=== PATIENT | female | born 1970 | race Caucasian/White ===

== ENCOUNTER 2017-05-06 16:11 | Emergency (ER) | payer MEDICAID ==
[~2017-05-06] VITALS: Ht 162.6 cm; Wt 79.0 kg
[~2017-05-06 16:11] MED LIST: POTA-243 PO; ZOFR4TAB3 PO
[2017-05-06 16:23] VITALS: BP 137/87; PULSE 101; RESP 16; TEMP 98.6; O2SAT 96
--- NOTE | 2017-05-06 16:43 | PD ---
HPI Chief Complaint: Injury Time Seen by Provider: 16:27 Travel History International Travel<30 days: No Contact w/Intl Traveler<30days: No Traveled to known affect area: No History of Present Illness HPI 47-year-old female to the emergency room for evaluation of right elbow pain and swelling after injuring it just prior to arrival. Patient slipped on clothing on her floor and fell forward striking her elbow against the wall before falling to the ground and landing on her elbow. Denies any other injuries. Had mild pain but states every time she uses her hand the pain worsens. Denies paresthesias. She has not taken anything for pain. Denies any daily medications. PFSH Past Medical History Hx Anticoagulant Therapy: No Arthritis: No Blood Disorders: No Anxiety: Yes Depression: Yes Heart Rhythm Problems: Yes (PALPITATIONS) Cancer: No Cardiovascular Problems: Yes (intermittent sudden cold/pallor/pain to legs) High Cholesterol: Yes Chest Pain: Yes Congestive Heart Failure: No Cerebrovascular Accident: Yes Diminished Hearing: No Endocrine: No Genitourinary: Yes Headaches: Yes Hiatal Hernia: Yes Immune Disorder: No Kidney Stones: Yes (STENTS PLACED MULTIPLE TIMES, LITHOTRIPSY) Musculoskeletal: Yes (legs get weak and give out; mobility impaired by) Neurologic: Yes Psychiatric: No Reproductive: Yes Respiratory: No Migraines: Yes Pneumonia: Yes Seizures: Yes Ulcer: Yes ?: Not : 3 Para: 3 : 0 Tubal Ligation: Yes (1996) Past Surgical History Abdominal Surgery: Yes (2 HERNIA REPAIRS) Arteriovenous Shunt: No Gynecologic Surgery: Yes (TUBAL 1996, HYSTERECTOMY) Hysterectomy: Yes Other Surgery: Yes (LITHOTRIPSY, LEFT KIDNEY) Social History Alcohol Use: No Tobacco Use: Yes (1 PPD) Substance Use: No Allergies-Medications (Allergen,Severity, Reaction): Coded Allergies: Sulfa (Sulfonamide Antibiotics) (Unverified Allergy, Severe, Hives, ) diazepam (Unverified Allergy, Severe, Irritability/Anxiety, 05/06/17) Reported Meds & Prescriptions Reported Meds & Active Scripts Active Review of Systems Except as stated in HPI: all other systems reviewed are Neg Physical Exam Narrative GENERAL: Well-nourished, well-developed female in no acute distress. Afebrile. Ambulatory. SKIN: Focused skin assessment warm/dry. No erythema or ecchymosis noted. HEAD: Normocephalic. EYES: No scleral icterus. No injection or drainage. NECK: Supple, trachea midline. No JVD or lymphadenopathy. CARDIOVASCULAR: Regular rate and rhythm without murmurs, gallops, or rubs. RESPIRATORY: Breath sounds equal bilaterally. No accessory muscle use. MUSCULOSKELETAL: No cyanosis. Very mild edema over the lateral epicondyle. Tenderness to palpation of the lateral epicondyle. 2+ radial pulse. Radial, ulnar, and median nerves intact. Strength 5/5 and equal in bilateral upper extremities. Data Data Last Documented VS Vital Signs Date Time Temp Pulse Resp B/P (MAP) Pulse Ox O2 Delivery O2 Flow Rate FiO2 05/06/17 16:23 98.6 101 16 137/87 (104) 96 Orders Orders Elbow, Complete (4 Vws) (05/06/17 ) [facility] Medical Decision Making Medical Screen Exam Complete: Yes Emergency Medical Condition: Yes Medical Record Reviewed: Yes Differential Diagnosis Contusion, abrasion, fracture, strain, sprain Narrative Course 47-year-old female presents to the emergency room for evaluation of right elbow pain and swelling after injuring it earlier today. Patient slipped on her wood floor striking her elbow on her wall before landing on her elbow. She reports [id number] pain worse with range of motion of the hand. She denies paresthesias. Physical exam reveals mild edema over the lateral epicondyle. There is tenderness to palpation. Radial, ulnar, and median nerves intact. 2+ radial pulse. Full range motion the elbow. X-ray is negative. This is contusion. Patient discharged with Garry wrap and told to follow up with a primary care physician if symptoms persist or return for worsening symptoms. She understands and agrees to plan. Diagnosis Primary Impression: Contusion of right elbow Qualified Codes: S50.01XA - Contusion of right elbow, initial encounter Referrals: Primary Care Physician Additional Instructions: Rest and drink plenty of fluids. Garry wrap as needed for pain. Take ibuprofen with food as directed, as needed for pain. Apply ice to the affected area for 20 minutes at a time, as needed for pain and swelling. Follow-up with a primary care physician. Return to the emergency room for worsening symptoms. Disposition: 01 DISCHARGE HOME Condition: Stable Haily Terrazas May 06, 2017 16:43
--- NOTE | 2017-05-06 16:53 | RADRPT ---
EXAM DATE/TIME: 05/06/2017 16:45 [facility] COMPARISON: CHEST SINGLE AP, May 05, 2015, 13:57. INDICATIONS : Fall this morning and landed on elbow. MEDICAL HISTORY : None. SURGICAL HISTORY : None. ENCOUNTER: Initial ACUITY: 1 day PAIN SCORE: 8/10 LOCATION: Right Elbow FINDINGS: Multiple view examination of the right elbow demonstrates no soft tissue swelling, joint effusion, or fracture. The osseous structures are in normal alignment. Bony mineralization is normal. CONCLUSION: 1. Negative examination. Naveed Gerber MD on May 06, 2017 at 16:51 Board Certified Radiologist. This report was verified electronically.
== END 2017-05-06 17:13 | disposition home or self-care (01) ==
LOC: PHEFT 16:11
DX: S50.01XA Contusion of right elbow, initial encounter (principal); W01.198A Fall on same level from slipping, tripping and stumbling with subsequent striking against other object, initial encounter
CPT/HCPCS: 73080; 99283

== ENCOUNTER 2017-06-17 09:19 | Emergency (ER) | payer MEDICAID ==
[~2017-06-17] VITALS: Ht 162.6 cm; Wt 80.6 kg
[2017-06-17 09:44] VITALS: BP 137/83; PULSE 96; RESP 16; TEMP 98.2; O2SAT 98
[2017-06-17] MEDS ORDERED: SODIUM CHLOR 0.9% 1000 ML INJ 1,000 ML IV SCH (10:11)
[2017-06-17] MEDS ORDERED: LIDOCAINE VISCOUS 2% SOLN 15 ML UDC PO ONE (10:15)
[2017-06-17] MEDS ORDERED: SODIUM CHLORIDE 0.9% FLUSH 10 ML FLUSH IV FLUSH PRN (10:15)
[2017-06-17] MEDS ORDERED: ALUMINUM/MAGNESIUM/SIMETH 30 ML CUP PO ONE (10:15)
[2017-06-17] MEDS ORDERED: KETOROLAC TROMETHAMINE 30 MG/ML (IVP) VIAL IVP ONE (10:15)
[2017-06-17 10:24] VITALS: O2SAT 98
[2017-06-17 10:30] LABS: AUTOMATED NEUTROPHIL # 5.6 TH/MM3 (1.8-7.7); BASOPHIL # 0.1 TH/MM3 (0-0.2); BASOPHIL % 0.9 % (0.0-2.0); EOSINOPHIL # 0.1 TH/MM3 (0-0.4); EOSINOPHIL % 1.3 % (0.0-4.0); HEMATOCRIT 41.1 % (35.0-46.0); HEMO FLAGS DIFF FINAL; LYMPH % 25.7 % (9.0-44.0); LYMPHOCYTE # 2.2 TH/MM3 (1.0-4.8); MEAN CELL VOLUME 87.9 FL (80.0-100.0); MEAN CORPUSCULAR HEMOGLOBIN 29.8 PG (27.0-34.0); MEAN CORPUSCULAR HGB CONC 33.9 % (32.0-36.0); MONO % 7.3 % (0.0-8.0); NEUT % 64.8 % (16.0-70.0); PLATELET COUNT 288 TH/MM3 (150-450); RED BLOOD COUNT 4.67 MIL/MM3 (4.00-5.30); WHITE BLOOD COUNT 8.6 TH/MM3 (4.0-11.0)
[2017-06-17 10:31] LABS: BLOOD, URINE SMALL (NEG); GLUCOSE,URINE NEG (NEG); KETONE, URINE NEG (NEG); NITRITE,URINE NEG (NEG); PH, URINE 7.5 (5.0-8.5); URINE COLOR YELLOW (YELLW/STRAW)
[2017-06-17 10:36] LABS: BACTERIA, URINE RARE /hpf; COMMENT (UR) CULT NOT INDICATED; CULTURE IF INDICATED CULT NOT INDICATED; RBC, URINE 0-3 /hpf (0-3); SQUAMOUS EPITHELIAL CELL URINE 0-5 /hpf (0-5)
[2017-06-17 10:44] LABS: CHLORIDE 105 MEQ/L (98-107); POTASSIUM 3.6 MEQ/L (3.5-5.1); SODIUM (NA) 140 MEQ/L (136-145)
--- NOTE | 2017-06-17 10:46 | PD ---
HPI Chief Complaint: Flank/Kidney Pain Time Seen by Provider: 10:08 Travel History International Travel<30 days: No Contact w/Intl Traveler<30days: No Traveled to known affect area: No History of Present Illness HPI 47 yo F c/o R abdomen pain with radiation to the right flank starting over the past few days and worsening significantly overnight. + Nausea without vomiting. No diarrhea. Oral intake tends to provoke or worsen pain. no fever. no urinary symptoms, vb/vd. no hx gallbladder disease. pain can be moderate to severe. pt denies alcohol. PFSH Past Medical History Hx Anticoagulant Therapy: No Arthritis: No Blood Disorders: No Anxiety: Yes Depression: Yes Heart Rhythm Problems: Yes (PALPITATIONS) Cancer: No Cardiovascular Problems: Yes (intermittent sudden cold/pallor/pain to legs) High Cholesterol: Yes Chest Pain: Yes Congestive Heart Failure: No Cerebrovascular Accident: Yes Diminished Hearing: No Endocrine: No Genitourinary: Yes Headaches: Yes Hiatal Hernia: Yes Immune Disorder: No Kidney Stones: Yes (STENTS PLACED MULTIPLE TIMES, LITHOTRIPSY) Musculoskeletal: Yes (legs get weak and give out; mobility impaired by) Neurologic: Yes Psychiatric: No Reproductive: Yes Respiratory: No Migraines: Yes Pneumonia: Yes Seizures: Yes Ulcer: Yes Influenza Vaccination: No ?: Not : 3 Para: 3 Miscarriage: 0 : 0 Tubal Ligation: Yes (1996) Past Surgical History Abdominal Surgery: Yes (2 HERNIA REPAIRS) Arteriovenous Shunt: No Gynecologic Surgery: Yes (TUBAL 1996, HYSTERECTOMY) Hysterectomy: Yes Other Surgery: Yes (LITHOTRIPSY, LEFT KIDNEY) Social History Alcohol Use: No Tobacco Use: Yes (1 PPD) Substance Use: No Allergies-Medications (Allergen,Severity, Reaction): Coded Allergies: Sulfa (Sulfonamide Antibiotics) (Unverified Allergy, Severe, Hives, ) diazepam (Unverified Allergy, Severe, Irritability/Anxiety, 06/17/17) Reported Meds & Prescriptions Reported Meds & Active Scripts Active No Active Prescriptions or Reported Medications Review of Systems Except as stated in HPI: all other systems reviewed are Neg General / Constitutional: No: Fever Gastrointestinal: Positive: Abdominal Pain Physical Exam Narrative GENERAL: 47 yo F, WNWD, mild distress 2/2 pain SKIN: Warm and dry. HEAD: Atraumatic. Normocephalic. EYES: Pupils equal and round. No scleral icterus. No injection or drainage. ENT: No nasal bleeding or discharge. Mucous membranes pink and moist. NECK: Trachea midline. No JVD. CARDIOVASCULAR: Regular rate and rhythm. RESPIRATORY: No accessory muscle use. Clear to auscultation. Breath sounds equal bilaterally. GASTROINTESTINAL: Soft. TTP RUQ. No flank TTP. MUSCULOSKELETAL: Extremities without clubbing, cyanosis, or edema. No obvious deformities. NEUROLOGICAL: Awake and alert. No obvious cranial nerve deficits. Motor grossly within normal limits. Five out of 5 muscle strength in the arms and legs. Normal speech. PSYCHIATRIC: Appropriate mood and affect; insight and judgment normal. Data Data Last Documented VS Vital Signs Date Time Temp Pulse Resp B/P (MAP) Pulse Ox O2 Delivery O2 Flow Rate FiO2 06/17/17 10:24 98 Room Air 06/17/17 09:44 98.2 96 16 137/83 (101) VS reviewed Orders Orders Complete Blood Count With Diff (06/17/17 10:11) Comprehensive Metabolic Panel (06/17/17 10:11) Lipase (06/17/17 10:11) Urinalysis - C+S If Indicated (06/17/17 10:11) Ct Abd/Pel W Iv Contrast(Rout) (06/17/17 10:11) Iv Access Insert/Monitor (06/17/17 10:11) Ecg Monitoring (06/17/17 10:11) Oximetry (06/17/17 10:11) Sodium Chlor 0.9% 1000 Ml Inj (Ns 1000 M (06/17/17 10:11) Sodium Chloride 0.9% Flush (Ns Flush) (06/17/17 10:15) Ketorolac Inj (Toradol Inj) (06/17/17 10:15) Al-Mag Hy-Si 40-40-4 Mg/Ml Liq (Mag-Al P (06/17/17 10:15) Lidocaine 2% Viscous (Xylocaine 2% Visco (06/17/17 10:15) Ed Urine Pregnancytest Poc (06/17/17 10:11) Iohexol 350 Inj (Omnipaque 350 Inj) (06/17/17 11:22) Ed Discharge Order (06/17/17 12:21) Labs Laboratory Tests Test 06/17/17 10:17 06/17/17 10:23 Urine Color YELLOW Urine Turbidity CLEAR Urine pH 7.5 Urine Specific [place] 1.005 Urine Protein NEG mg/dL Urine Glucose (UA) NEG mg/dL Urine Ketones NEG mg/dL Urine Occult Blood SMALL Urine Nitrite NEG Urine Bilirubin NEG Urine Leukocyte Esterase NEG Urine RBC 0-3 /hpf Urine Squamous Epithelial Cells 0-5 /hpf Urine Bacteria RARE /hpf Microscopic Urinalysis Comment CULT NOT INDICATED White Blood Count 8.6 TH/MM3 Red Blood Count 4.67 MIL/MM3 Hemoglobin 13.9 GM/DL Hematocrit 41.1 % Mean Corpuscular Volume 87.9 FL Mean Corpuscular Hemoglobin 29.8 PG Mean Corpuscular Hemoglobin Concent 33.9 % Red Cell Distribution Width 13.0 % Platelet Count 288 TH/MM3 Mean Platelet Volume 9.8 FL Neutrophils (%) (Auto) 64.8 % Lymphocytes (%) (Auto) 25.7 % Monocytes (%) (Auto) 7.3 % Eosinophils (%) (Auto) 1.3 % Basophils (%) (Auto) 0.9 % Neutrophils # (Auto) 5.6 TH/MM3 Lymphocytes # (Auto) 2.2 TH/MM3 Monocytes # (Auto) 0.6 TH/MM3 Eosinophils # (Auto) 0.1 TH/MM3 Basophils # (Auto) 0.1 TH/MM3 CBC Comment DIFF FINAL Differential Comment Blood Urea Nitrogen 6 MG/DL Creatinine 0.63 MG/DL Random Glucose 82 MG/DL Total Protein 7.7 GM/DL Albumin 3.8 GM/DL Calcium Level 9.0 MG/DL Alkaline Phosphatase 112 U/L Aspartate Amino Transf (AST/SGOT) 13 U/L Alanine Aminotransferase (ALT/SGPT) 22 U/L Total Bilirubin 0.4 MG/DL Sodium Level 140 MEQ/L Potassium Level 3.6 MEQ/L Chloride Level 105 MEQ/L Carbon Dioxide Level 32.3 MEQ/L Anion Gap 3 MEQ/L Estimat Glomerular Filtration Rate 102 ML/MIN Lipase 184 U/L [facility] Medical Decision Making Medical Screen Exam Complete: Yes Emergency Medical Condition: Yes Medical Record Reviewed: Yes Differential Diagnosis Constipation, Gastritis, Acute Cholecystitis, Biliary Colic, Pancreatitis, GARCIA , Hepatitis, Bowel Obstruction, Cystitis, Mesenteric Ischemia, AAA, Appendicitis , Renal Stone/Hydronephrosis, GERD, perforated viscous Narrative Course CBC & BMP Diagram 06/17/17 10:23 Total Protein 7.7, Albumin 3.8, Calcium Level 9.0, Alkaline Phosphatase 112, Aspartate Amino Transf (AST/SGOT) 13 L, Alanine Aminotransferase (ALT/SGPT) 22, Total Bilirubin 0.4 Last 24 hours Impressions Abdomen/Pelvis CT 06/17/17 1011 Signed Impressions: Service Date/Time: June 11:15 - CONCLUSION: 1. No abnormality is identified to explain the clinical symptoms. There is no acute finding and the appendix is normal. 2. Stable 3 mm nonobstructing left renal stone. Ranjan Shirley MD No imaging lab work are unremarkable. Upon reassessment of the patient she states she thinks she might have constipation which is not unreasonable consideration given the results of the workup. We discussed return precautions. The patient's ready for discharge. Diagnosis Primary Impression: Constipation Qualified Codes: K59.00 - Constipation, unspecified Referrals: Primary Care Physician 2 days Scripts No Active Prescriptions or Reported Meds Disposition: DISCHARGE HOME Condition: Stable Naveed Loyola MD Jun 17, 2017 10:46
[2017-06-17 10:48] LABS: ANION GAP 3 MEQ/L (5-15); BICARBONATE 32.3 MEQ/L (21.0-32.0); BLOOD UREA NITROGEN 6 MG/DL (7-18)
[2017-06-17 10:51] LABS: ALT (GPT) 22 U/L (10-53); AST (GOT) 13 U/L (15-37); GLOMERULAR FILTRATION RATE 102 ML/MIN (>89)
[2017-06-17 10:52] LABS: TOTAL BILIRUBIN ADULT 0.4 MG/DL (0.2-1.0)
[2017-06-17 10:54] LABS: ALKALINE PHOSPHATASE 112 U/L (45-117)
[2017-06-17] MEDS ORDERED: IOHEXOL 350 MG/ML 10 ML VIAL (for RAD DIAG) IVCONTRAST ONE (11:22)
--- NOTE | 2017-06-17 11:54 | RADRPT ---
EXAM DATE/TIME: 06/17/2017 11:15 [facility] COMPARISON: CT ABDOMEN & PELVIS W/O CONTRAST, January 11, 2012, 7:58. INDICATIONS : Right lower quadrant pain with nausea x 3 days. IV CONTRAST: 85 cc Omnipaque 350 (iohexol) IV ORAL CONTRAST: No oral contrast ingested. RADIATION DOSE: 13.15 CTDIvol (mGy) MEDICAL HISTORY : Renal calculi. Hernia, hiatal. Seizures. SURGICAL HISTORY : Tubal ligation. Hysterectomy.Hernia repair. ENCOUNTER: Initial ACUITY: 3 days PAIN SCALE: 7/10 LOCATION: Right lower quadrant TECHNIQUE: Volumetric scanning of the abdomen and pelvis was performed. Using automated exposure control and ad justment of the mA and/or kV according to patient size, radiation dose was kept as low as reasonably achievable to obtain optimal diagnostic quality images. DICOM format image data is available electro nically for review and comparison. FINDINGS: LOWER LUNGS: The visualized lower lungs are clear. LIVER: The liver measures 20 cm in length. There is an incidental 4 mm low-density lesion in the left lobe t hat is too small to characterize. There is no dilation of the biliary tree. No calcified gallstones . SPLEEN: Normal size without lesion. PANCREAS: Within normal limits. KIDNEYS: Normal in size and shape. There is no mass or hydronephrosis. A stable 3 mm nonobstructing stone is present in the left lower pole collecting system. An incidental 6 mm low-density lesion in the left m id kidney is too small to characterize. ADRENAL GLANDS: Within normal limits. VASCULAR: There is no aortic aneurysm. There is mild atherosclerotic disease. BOWEL/MESENTERY: The stomach, small bowel, and colon demonstrate no acute abnormality. There is no free intraperitone al air or fluid. Appendix and terminal ileum are normal. ABDOMINAL WALL: Within normal limits. RETROPERITONEUM: There is no lymphadenopathy. BLADDER: No wall thickening or mass. REPRODUCTIVE: Uterus is absent. Ovaries demonstrate no concerning abnormality. There is a follicle in the left ovar y measuring 13 mm. INGUINAL: There is no lymphadenopathy or hernia. MUSCULOSKELETAL: No acute abnormality. CONCLUSION: 1. No abnormality is identified to explain the clinical symptoms. There is no acute finding and the a ppendix is normal. 2. Stable 3 mm nonobstructing left renal stone. Ranjan Shirley MD on June 17, 2017 at 11:42 Board Certified Radiologist. This report was verified electronically.
== END 2017-06-17 12:58 | disposition home or self-care (01) ==
LOC: PHED 09:19
DX: K59.00 Constipation, unspecified (principal); N20.0 Calculus of kidney; E78.00 Pure hypercholesterolemia, unspecified; Z86.73 Personal history of transient ischemic attack (TIA), and cerebral infarction without residual deficits
CPT/HCPCS: 74177; 80053; 81001; 83690; 84703; 85025; 96361; 96374; 99285; J1885; J7030; Q9967